=== PATIENT | female | born 1940 | race Caucasian/White ===

== ENCOUNTER → 2016-08-01 | Outpatient (CLI) | payer OTHER ==
[~2016-08-01] MED LIST: ACET1TAB84 PO; ASPEC325 PO; CALC-354 PO; CYM/30 PO; DOCU-94 PO; ESTR0.3T PO; FLUT0.0529 NAE; GABA-112 PO; GABA-113 PO; HYDR-5688 PO; KLN5 PO; LOVA40TA4 PO; LRT5 PO; MELO7.5T5 PO; METO25TA3 PO; MULT-506 PO; OMEG12006 PO; OXYSR10 PO; PANT40TA PO; PARO1TAB27 PO; PLANTAB3 PO; RXC5 PO; SYN75 PO; TRMO115 TOP; VITATAB11 PO; [UNRECOGNIZED DRUG - OTHER] PO
--- NOTE | 2016-08-01 16:44 | DIAGNOSTIC IMAGING REPORT ---
MRI OF THE LUMBAR SPINE WITHOUT CONTRAST CLINICAL HISTORY: Lumbar radiculopathy. Low back pain radiating into both lower extremities with lower extremity numbness. COMPARISON STUDY: Lumbar spine radiographs December 27, 2006. TECHNIQUE: Utilizing a 1.5 Deborah magnet and dedicated coil, multiplanar, multiecho imaging of the lumbar spine was performed without IV contrast. FINDINGS: For purposes of numbering on this exam, the L5-S1 disc space is assigned to axial image 23 of 25. Vertebral body heights are maintained. There is slight retrolisthesis of L2 on L3. Discogenic changes at the L2-L3 level are noted. There is no intracanalicular mass or fluid collection. The conus terminates at the lower L1 level. 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 Paravertebral soft tissues are unremarkable. There is mild levoscoliosis of the lumbar spine. L1-2: There is mild disc bulge. The central canal and neural foramen are patent. L2-3: There is a disc bulge with ligamentous hypertrophy and facet arthrosis. There is a central annular tear. There is a superimposed right paracentral disc protrusion. There is moderate narrowing of the central canal and lateral recesses as well as mild narrowing of both neural foramen. L3-4: There is disc bulge with ligamentous hypertrophy and facet arthrosis. There is mild narrowing of the central canal, lateral recesses and the neural foramen. L4-5: There is disc bulge with ligamentous hypertrophy and facet arthrosis. The central canal and neural foramen are patent. L5-S1: The central canal is patent. There is moderate narrowing of left neural foramen and mild to moderate narrowing of the right neural foramen. IMPRESSION: 1. Moderate multilevel degenerative disc disease and facet arthrosis most pronounced at L2-L3 where a disc bulge with superimposed right paracentral disc protrusion, ligamentous hypertrophy and facet arthrosis result in moderate narrowing of the central canal and lateral recesses. 2. Moderate multilevel neural foraminal stenosis, as detailed above. 3. No compression fracture. Electronically signed by: Andres Loco M.D. 08/01/2016 4:42 PM Dictated Date/Time: 08/01/2016 4:36 PM
== END | disposition home or self-care (01) ==
LOC: C.MRIBC 15:25
PROVIDERS: ATTEND Pain Medicine Interventional Pain Medicine
DX: M51.16 Intervertebral disc disorders with radiculopathy, lumbar region (principal); M99.73 Connective tissue and disc stenosis of intervertebral foramina of lumbar region

== ENCOUNTER 2016-09-25 05:30 | Inpatient (IN) | payer OTHER ==
--- NOTE | 2016-09-12 11:12 | DIAGNOSTIC IMAGING REPORT ---
CHEST 2 VIEWS ROUTINE HISTORY: PRE OP, PT WENT TO [facility], [facility] AFTER PLEASE COMPARISON: Chest 10/11/2013. FINDINGS: No new focal lung consolidations. The heart is normal in size. Old, healed bilateral rib fractures. No pleural effusions. No pneumothorax. Stable eventration of the right hemidiaphragm. A few small linear densities within the right middle lobe consistent with subsegmental atelectasis or scarring. This is also unchanged. IMPRESSION: No significant change compared to the prior study. No acute process. Electronically signed by: Cl Garcia M.D. 09/12/2016 11:10 AM Dictated Date/Time: 09/12/2016 11:09 AM
[2016-09-12 12:01] LABS: BASO % 0.5 %; BASO ABS # 0.03 K/uL (0-0.2); COMPLETE YES; EOS % 1.7 %; HEMATOCRIT 43.1 % (37-47); IG% 0.6 %; LYMPH % 32.7 %; LYMPH ABS # 2.09 K/uL (1.2-3.4); MEAN CELL VOLUME 96.4 fL (80-100); MEAN CORPUSCULAR HEMOGLOBIN 31.8 pg (25-34); MEAN CORPUSCULAR HGB CONC 32.9 g/dl (32-36); MEAN PLATELET VOLUME 10.7 fL (7.4-10.4); MONO % 10.3 %; NEUT % 54.2 %; PLATELET COUNT 250 K/uL (130-400); RED BLOOD COUNT 4.47 M/uL (4.2-5.4)
[2016-09-12 12:17] LABS: URINE APPEARANCE CLEAR (CLEAR); URINE BILIRUBIN NEG (NEG); URINE COLOR DK YELLOW; URINE EPITHELIAL CELL AUTO >30 /lpf (0-5); URINE NITRITE NEG (NEG); URINE PH 6.5 (4.5-7.5); URINE SPECIFIC GRAVITY 1.023 (1.000-1.030); UROBILINOGEN NEG (NEG)
[2016-09-12 12:19] LABS: CALCIUM 9.2 mg/dl (8.5-10.1)
[2016-09-12 12:21] LABS: BLOOD UREA NITROGEN 18 mg/dl (7-18); CARBON DIOXIDE 29 mmol/L (21-32); CHLORIDE 109 mmol/L (98-107); CREATININE 0.92 mg/dl (0.60-1.20); GLUCOSE 68 mg/dl (70-99); SODIUM 144 mmol/L (136-145)
[2016-09-12 12:42] LABS: MANUAL MICROSCOPIC REQUIRED? NO; REVIEW REQ? NO
[2016-09-12 14:13] VITALS: BMI 33.0
[~2016-09-25] VITALS: Ht 157.5 cm; Wt 85.0 kg
[2016-09-25] VITALS (10 sets, daily range): BP systolic 115–169; BP diastolic 49–82; PULSE 16–84; TEMP 36.4–36.9; O2SAT 91–100; Ht 157.5 cm; Wt 85.0 kg
[~2016-09-25 05:30] MED LIST changes: -ACET1TAB84 PO; -ASPEC325 PO; -ESTR0.3T PO; -GABA-113 PO; -KLN5 PO; -LRT5 PO; -MELO7.5T5 PO; -OXYSR10 PO; -PARO1TAB27 PO; -PLANTAB3 PO; -RXC5 PO; -TRMO115 TOP
[2016-09-25] MEDS ORDERED: LACTATED RINGER'S 1000ML 1,000 ML IV SCH (06:00)
[2016-09-25] MEDS ORDERED: CEFAZOLIN 2000 MG/60 ML D5W IV SCH (06:00)
[2016-09-25] MEDS ORDERED: MIDAZOLAM HCL 1 MG/ML 2ML VIAL ONE (06:43)
[2016-09-25] MEDS ORDERED: FENTANYL CITRATE INJ 50 MCG/1 ML 2 ML VIAL ONE ×2 (06:43→07:57)
[2016-09-25] MEDS ORDERED: BUPIVACAINE/EPINEPHRINE 0.5% MPF 1:200,000 30 ML VIAL ONE (07:07)
[2016-09-25] MEDS ORDERED: SODIUM CHLORIDE 0.9% PF 50 ML VIAL ONE (07:07)
[2016-09-25] MEDS ORDERED: BACITRACIN 50000 UNIT VIAL ONE (07:07)
--- NOTE | 2016-09-25 07:22 | History & Physical Bridge Note ---
H&P Re-Evaluation Bridge Note: I have examined the patient, reviewed the History & Physical and in the interval since the performance of the History & Physical I have noted the following changes of clinical significance: No changes noted
--- NOTE | 2016-09-25 07:23 | History and Physical ---
History & Physical Date September 25, 2016. Chief Complaint back and leg pain History of Present Illness The patient is a 76 year old female with complaints of Additional History Hepatic Disease: No Endocrine Disorder: No Kidney Disease: No Hypertension: No Heart Disease: No Bleeding Tendencies: No Infectious Diseases: No Allergies Coded Allergies: NO KNOWN DRUG ALLERGIES (Unverified Allergy, Unknown, NONE, 09/25/16) Adhesives (Unverified Adverse Reaction, Severe, plastic tapes takes her skin off, 09/25/16) Chlorhexidine (Unverified Adverse Reaction, Intermediate, rash on rt le from pre-op wipes last pm and this am, 09/25/16) Home Medications Scheduled Calcium Carbonate-Cholecalcife (Caltrate 600+D), 1 TAB PO QAM Docusate Sodium (Colace), 100 MG PO BID Duloxetine HCl (Cymbalta), 1 CAP PO QPM Gabapentin (Neurontin), 100 MG PO BID Levothyroxine (Synthroid *), 0.075 MG PO QAM Lovastatin (Mevacor), 40 MG PO HS Metoprolol Succ (Toprol Xl) (Toprol-Xl), 25 MG PO QAM Multivitamin (Multivitamin), 1 TAB PO QAM Herron-3 Fatty Acids (Herron 3), 1,000 MG PO DAILY Pantoprazole (Protonix), 40 MG PO QAM [Natural Made], 2 TAB PO QPM Scheduled PRN Fluticasone Propionate (Nasal) (Flonase), 2 SPRAYS ANDRES DAILY PRN for PRN Hydrocodone/Acetaminophen 5MG/325MG ([place] 5MG/325MG), 1 TABLET PO Q4-6H PRN for Pain Physical Examination Skin: warm/dry, no rash Eyes: normal inspection, EOMI, sclerae normal ENT: normal ENT inspection, pharynx normal Head: normocephalic, atraumatic Neck: supple, no adenopathy, trachea midline Respiratory/Chest: lungs clear, normal breath sounds, no respiratory distress Cardiovascular: regular rate, rhythm, no edema, no murmur Abdomen / GI: normal bowel sounds, non tender Back: normal inspection Extremities: normal inspection, normal range of motion Neurologic/Psych: no motor/sensory deficits, alert, normal reflexes, oriented x 3 Diagnosis lumbar stenosis Plan of Treatment decompression fusion L2-3 L3-4
[2016-09-25] MEDS ORDERED: HYDROmorphone INJ 2 MG/ML SYR/VIAL ONE (07:57)
[2016-09-25] MEDS ORDERED: ONDANSETRON INJ 2 MG/ML 2 ML VIAL IV PRN ×2 (08:00→09:30)
[2016-09-25] MEDS ORDERED: EpHEDrine SULFATE INJ 50 MG/ML AMP IV PRN (08:00)
[2016-09-25] MEDS ORDERED: ATROPINE SULFATE 0.1 MG/ML 5ML SYR IV PRN (08:00)
[2016-09-25] MEDS ORDERED: ROCURONIUM BROMIDE 10 MG/ML 5 ML VIAL ONE (08:26)
[2016-09-25] MEDS ORDERED: DEXAMETHASONE SOD INJ 4 MG/ML VIAL ONE (08:26)
[2016-09-25] MEDS ORDERED: GLYCOPYRROLATE INJ 0.2 MG/ML VIAL ONE (08:26)
[2016-09-25] MEDS ORDERED: NEOSTIGMINE METHYLSULFATE 1 MG/ML 10ML VIAL ONE (08:26)
[2016-09-25] MEDS ORDERED: LIDOCAINE HCL 2% 2 ML VIAL (20MG/ML) ONE (08:26)
[2016-09-25] MEDS ORDERED: EpHEDrine SULFATE 50MG/5ML SYR ONE (08:26)
[2016-09-25] MEDS ORDERED: PROPOFOL IV EMULSION 10 MG/ML 20 ML VIAL IV ONE (08:26)
[2016-09-25] MEDS ORDERED: ONDANSETRON INJ 2 MG/ML 2 ML VIAL ONE (08:26)
[2016-09-25] MEDS ORDERED: FLOSEAL HEMOSTATIC MATRIX 10ML TOP ONE (09:27)
[2016-09-25] MEDS ORDERED: SODIUM CHLORIDE 0.9% 1000ML 1,000 ML IV SCH (09:29)
--- NOTE | 2016-09-25 09:29 | [facility] Post Operative Brief Note ---
Immediate Operative Summary Operative Date September 25, 2016. Pre-Operative Diagnosis Lumbar Spinal Stenosis Post-Operative Diagnosis Lumbar Spinal Stenosis Procedure(s) Performed L2-L3, L3-L4 Lumbar Laminectomy, Decompression, Pedicle Screw Fixation, Placement of Interbody Device L2-L3, L3-L4, Posterolateral Fusion L2-L3, L3-L4, Application of Allograft, Bone Morphogenetic Protein Surgeon Dr. Ricardo Neuropsychiatrist Surgeon(s) KIRSTEN Russell Estimated Blood Loss 250 Findings stenosis/hnp Specimens none per surgeon
[2016-09-25] MEDS ORDERED: FAMOTIDINE 20 MG TAB PO PRN (09:30)
[2016-09-25] MEDS ORDERED: DO NOT ADMINISTER PNEUMOCOCCAL VACCINE PRN ×2 (09:30)
[2016-09-25] MEDS ORDERED: SOD PHOSPHATE/SOD BIPHOSPHATE ENEMA 132 ML BTL PR PRN (09:30)
[2016-09-25] MEDS ORDERED: MAGNESIUM HYDROXIDE SUSP 30 ML UDC PO PRN (09:30)
[2016-09-25] MEDS ORDERED: LORAZEPAM 0.5 MG TAB PO PRN (09:30)
[2016-09-25] MEDS ORDERED: LORAZEPAM INJ 0.5 MG in SYRINGE 0.75 ML IV PRN (09:30)
[2016-09-25] MEDS ORDERED: METOCLOPRAMIDE HCL INJ 5 MG/ML 2 ML VIAL IV PRN (09:30)
[2016-09-25] MEDS ORDERED: HYDROmorphone HCL 0.5MG/ML 50 ML CASSETTE IV PRN (09:30)
[2016-09-25] MEDS ORDERED: DO NOT ADMINISTER FLU VACCINE PRN ×3 (09:30)
[2016-09-25] MEDS ORDERED: ACETAMINOPHEN IV 100 ML IV PRN (09:30)
[2016-09-25] MEDS ORDERED: NALOXONE HCL 0.4 MG/1 ML VIAL/CARP IV PRN ×2 (09:30)
[2016-09-25] MEDS ORDERED: DC PCA PRN (09:30)
[2016-09-25] MEDS ORDERED: ALUMINUM/MAGNESIUM SUSP 30 ML UDC PO PRN (09:30)
[2016-09-25] MEDS ORDERED: hydrOXYzine HCL 25 MG TAB PO PRN (09:30)
[2016-09-25] MEDS ORDERED: BISACODYL 10 MG SUPP PR PRN (09:30)
[2016-09-25] MEDS ORDERED: PROMETHAZINE HCL INJ 12.5 MG in SODIUM CHLORIDE 0.9% 50ML 50 ML IV PRN (09:30)
--- NOTE | 2016-09-25 09:34 | DIAGNOSTIC IMAGING REPORT ---
Lumbar spine LUMBAR SPINE 2 OR 3 VIEW CLINICAL HISTORY: L2-4 DECOMPRESSION/FUSION/INTERBODY/ILIAC BOLTS TECHNIQUE: Image intensifier COMPARISON STUDY: None FINDINGS: Lumbar laminectomy and fusion IMPRESSION: Image intensifier utilized for lumbar laminectomy and fusion Electronically signed by: Alex Villalobos M.D. 09/25/2016 9:33 AM Dictated Date/Time: 09/25/2016 9:33 AM
[2016-09-25] MEDS ORDERED: HYDROmorphone HCL 0.5MG/ML 50 ML CASSETTE ONE (09:50)
--- NOTE | 2016-09-25 09:50 | OPERATIVE REPORT ---
DATE OF OPERATION: 09/25/2016 PREOPERATIVE DIAGNOSES: Spinal stenosis and herniated nucleus pulposus. POSTOPERATIVE DIAGNOSES: Same. PROCEDURES PERFORMED: 1. Lumbar decompression, medial facetectomies, and foraminotomies, L1-L2, L2-L3 and L3-L4. 2. Posterior spinal fusion, L2-L3 and L3-L4. 3. Placement of posterior segmental instrumentation using Orthros rods and screws, L2-L3 and L3-L4. 4. Interbody fusion, L2-L3 and L3-L4. 5. Placement of PEEK cage 9 x 22 at L2-L3 and 10 x 22 at L3-L4. 6. Placement of locally harvested morselized autograft in the posterior gutters. 7. Placement of Infuse collagen sponge combined with Mastergraft in the posterior lateral gutters and No bone graft in the interbody space. SURGEON: Dr. Inocente Ricardo. LIVESTOCK SHOWMAN: Celi Chapman PA-C. Due to the complex nature of the procedure, the entire surgery was performed with the freezer assistant of Celi Chapman PA-C. The commercial lending assistant, under direct supervision, was involved in the actual performance of all aspects of the surgical procedure including hemostasis, tissue retraction and incision, instrument management, patient positioning, and wound closure. ANESTHESIA: General. DISPOSITION: The patient awakened and taken to PACU in stable condition. HISTORY OF PATIENT'S PROBLEMS: This is a 76-year-old female, well known to me that presents with above-mentioned diagnoses. After failing an extensive course of nonoperative care, she elected to undergo the above-mentioned procedures. Risks, benefits, pros, cons, and alternatives were outlined in detail preoperatively. DESCRIPTION OF PROCEDURE: The patient was met with preoperatively, case discussed and all questions were addressed. At that point, the patient was taken back to operative suite and after undergoing successful general intubation by the department of anesthesia, she was placed in prone position on Fernando table atop Jah frame. All bony prominences were well padded and the eyes were inspected to ensure there was no external pressure placed upon them. At this point, lumbar spine was prepped and draped in the normal sterile fashion. Sharp dissection with the assistance of Bovie cautery was performed down to and exposing the lamina and processes of L2, L3 and L4 bilaterally. From a caudal to cephalad fashion, complete laminectomy of L3 and L2 and partial laminectomy of L1 was performed addressing severe lateral recess foraminal disease as well as a massive disk herniation migrating caudally from the L2-L3 level. After complete decompression, pedicle screws were then placed in L2, L3, and L4 bilaterally with assistance of fluoroscopy and appropriate size drew provisionally placed. Through a transforaminal approach on the right, a complete diskectomy of L3-L4 was performed, endplates curetted to subcortical bleeding bone and a 10 x 22 mm PEEK cage filled with No bone grafting tapped into position. I then proceeded to L2 and L3 and again through a transforaminal approach on the right, complete diskectomy was performed, endplates curetted to subcortical bleeding bone and a 9 x 22 mm PEEK cage filled with No bone grafting tapped into position. The rods were then compressed, locked into final position bilaterally and transverse processes of L2, L3, and L4 burred to subcortical bleeding bone. Infuse collagen sponge combined with Mastergraft and locally harvested morcellized autograft was placed in the posterior gutters. A 7 flat SWAPNIL drain was inserted. Incision was closed with 1-0 Vicryl in the fascia, 2-0 Vicryl subcutaneously, and 4-0 Monocryl for final skin closure. Steri-Strips and sterile dressing placed. The patient was awakened and taken to PACU in stable condition. I attest to the content of the Intraoperative Record and any orders documented therein. Any exceptio ns are noted below.
[2016-09-25] MEDS: FENTANYL CITRATE INJ 50 MCG/1 ML 2 ML VIAL IV PRN ×4 (10:00→10:15)
[2016-09-25] MEDS: HYDROmorphone INJ 1 MG/ML SYR IV PRN ×3 (10:25→10:40)
[2016-09-25] MEDS: SODIUM CHLORIDE 0.9% 1000ML 1,000 ML IV SCH ×2 (12:23→18:48)
--- NOTE | 2016-09-25 13:47 | Anesthesiology Progress Note ---
Anesthesia Post Op Note Date & Time September 25, 2016 at 13:46 Vital Signs Pain Intensity: 4 Vital Signs Past 12 Hours Date Time Temp Pulse Resp B/P Pulse Ox O2 Delivery O2 Flow Rate FiO2 09/25/16 12:26 36.5 61 16 144/73 91 Nasal Cannula 4.0 09/25/16 11:30 36.4 68 18 128/64 91 Nasal Cannula 4.0 09/25/16 11:01 153/60 09/25/16 11:00 69 14 97 09/25/16 11:00 69 14 09/25/16 10:58 152/62 09/25/16 10:55 66 9 96 09/25/16 10:55 69 9 09/25/16 10:53 150/68 09/25/16 10:50 66 9 94 09/25/16 10:50 66 9 09/25/16 10:45 75 14 92 09/25/16 10:45 73 14 09/25/16 10:44 57 16 96 09/25/16 10:44 57 14 09/25/16 10:43 144/ 09/25/16 10:39 70 14 09/25/16 10:39 71 14 97 09/25/16 10:36 148/64 09/25/16 10:34 64 14 97 09/25/16 10:34 65 12 09/25/16 10:31 146/65 09/25/16 10:29 73 15 09/25/16 10:29 72 15 100 09/25/16 10:27 36.3 76 19 152/63 99 Nasal Cannula 4 09/25/16 10:26 152/63 09/25/16 10:25 147/61 09/25/16 10:24 70 14 09/25/16 10:24 70 14 98 09/25/16 10:23 149/ 09/25/16 10:19 70 15 97 09/25/16 10:19 71 15 09/25/16 10:16 150/68 09/25/16 10:14 72 15 156/66 97 09/25/16 10:14 72 15 09/25/16 10:09 73 21 98 09/25/16 10:09 73 21 09/25/16 10:06 155/67 09/25/16 10:04 75 17 09/25/16 10:04 76 17 99 09/25/16 10:03 78 21 09/25/16 10:03 78 21 99 09/25/16 10:01 160/71 09/25/16 09:58 79 20 09/25/16 09:58 79 20 97 09/25/16 09:56 158/71 09/25/16 09:53 80 22 09/25/16 09:53 80 22 100 09/25/16 09:51 164/75 09/25/16 09:49 176/76 09/25/16 09:48 71 16 09/25/16 09:48 71 16 100 09/25/16 09:48 36.2 71 16 176/76 100 Mask 10 09/25/16 06:16 36.8 84 24 169/82 100 Room Air Notes Mental Status: alert / awake / arousable, participated in evaluation Pt Amnestic to Procedure: Yes Nausea / Vomiting: adequately controlled Pain: adequately controlled Airway Patency, RR, SpO2: stable & adequate BP & HR: stable & adequate Hydration State: stable & adequate Anesthetic Complications: no major complications apparent
[2016-09-25] MEDS: CEFAZOLIN IV 2,000 MG in DEXTROSE 5% 50ML 50 ML IV SCH (16:13)
[2016-09-25] MEDS: DEXAMETHASONE INJ 6 MG in SYRINGE 0 ML IV SCH (16:13)
[2016-09-25] MEDS: DOCUSATE SODIUM/SENNA 50/8.6MG TAB PO SCH (20:59)
[2016-09-26] MEDS: CEFAZOLIN IV 2,000 MG in DEXTROSE 5% 50ML 50 ML IV SCH (00:08)
[2016-09-26] MEDS: DEXAMETHASONE INJ 6 MG in SYRINGE 0 ML IV SCH ×2 (00:09→07:56)
[2016-09-26] MEDS: SODIUM CHLORIDE 0.9% 1000ML 1,000 ML IV SCH (01:43)
[2016-09-26 03:40] VITALS: BP 148/70; PULSE 66; TEMP 36.6; O2SAT 96
[2016-09-26] MEDS ORDERED: HYDROmorphone INJ 1 MG/ML SYR IV PRN (06:00)
[2016-09-26] MEDS ORDERED: NURSING VERBAL MED ORDER ONE ×4 (06:15→19:00)
[2016-09-26 07:02] VITALS: BP 139/68; PULSE 68; TEMP 36.7; O2SAT 94
[2016-09-26 07:45] VITALS: O2SAT 94
[2016-09-26] MEDS: OXYCODONE HCL IR 5 MG TAB (IMMEDIATE RELEASE) PO PRN ×4 (07:56→22:22)
[2016-09-26 08:44] LABS: COMPLETE YES; IG% 0.2 %; LYMPH % 9.8 %; LYMPH ABS # 1.21 K/uL (1.2-3.4); MEAN CELL VOLUME 95.9 fL (80-100); MEAN CORPUSCULAR HEMOGLOBIN 31.5 pg (25-34); MEAN CORPUSCULAR HGB CONC 32.9 g/dl (32-36); MEAN PLATELET VOLUME 10.5 fL (7.4-10.4); PLATELET COUNT 213 K/uL (130-400); RED BLOOD COUNT 3.65 M/uL (4.2-5.4); WHITE BLOOD COUNT 12.37 K/uL (4.8-10.8)
[2016-09-26 09:10] LABS: BUN/CREATININE RATIO 18.5 (10-20); CREATININE 0.87 mg/dl (0.60-1.20); POTASSIUM 4.4 mmol/L (3.5-5.1)
[2016-09-26 09:14] LABS: CALCIUM 8.5 mg/dl (8.5-10.1)
[2016-09-26 11:08] VITALS: BP 157/73; PULSE 69; TEMP 36.2; O2SAT 95
[2016-09-26] MEDS ORDERED: RXC5 PO (15:16)
--- NOTE | 2016-09-26 15:16 | Discharge Instructions ---
Discharge Instructions Date of Service September 26, 2016. Admission Reason for Admission: Lumbar Spinal Stenosis Discharge Discharge Diagnosis / Problem: stenosis Discharge Goals Goal(s): Improve function Activity Recommendations Activity Limitations: per Instructions/Follow-up section . Instructions / Follow-Up Instructions / Follow-Up ACTIVITY RECOMMENDATIONS: SELF CARE INSTRUCTIONS AFTER THORACIC/LUMBAR FUSIONS 1. You may walk to your tolerance. It is good exercise for your legs and back. Expect some back and intermittent leg aches and pains. 2. You may perform "counter-top" level activities (make a sandwich, dejon with a project, etc.). 3. No bending or lifting of more than 10 pounds or back twisting of any nature (roll like a log when turning in bed). 4. You may ride in a car for 20-30 minutes at a time. No driving until after your first visit with your doctor. 5. Frequent changes of position and restricting sitting to 30 minutes at a time will help limit the amount of back spasms and stiffness you may experience. 6. You may discontinue the use of ambulatory aids (cane, crutches, etc.) once your strength and confidence allow. 7. You may complaint operator the shower and let water strike your incision when you arrive home at least once daily. Do not take a tub bath, sit in a hot tub or go into a swimming pool until after your first recheck in the office. SPECIAL CARE INSTRUCTIONS: VERY IMPORTANT TO READ AND REVIEW A. Your surgical incision has been closed with a cosmetic suture under the skin that will dissolve in about 6 weeks. In 14 days, you can use a pair of clean scissors and cut the suture that is left outside of the skin at the ends of your incision. 1. The small skin tapes can be removed 7 days after surgery if they have not fallen off by that point. 2. You may keep the wound open to air as much as possible to promote healing after post-op day number 5 unless told otherwise by your doctor. 3. If you think the wound looks like it is becoming infected (redness or worsening drainage) and/or you are experiencing fever, chill or worsening back pain and muscle spasms, contact the office so that we may evaluate you as soon as possible. B. Complications are uncommon, but please contact us if you have any signs or symptoms of: 1. wound infection (fever higher than 102.5 degrees F, redness, separation of wound, drainage, or increasing pain from the incision) 2. blood clots in legs (pain, swelling, redness and warmth in legs) 3. urinary tract infection (fever higher than 102.5 degrees F, burning upon urination or increased frequency of urination) 4. nerve problems (inability to walk on your toes or heels, numbness, loss of bowel or bladder control) 5. any other symptoms that concern you C. Please call the office at if you have any concerns or questions about your operation or recovery. D. No smoking! Smoking drastically decreases the chance of a solid fusion. E. Do not take any anti-inflammatory medications (Indocin, Advil, Motrin, Aspirin, Naprosyn, etc.) as these may inhibit the chance of a solid fusion. Tylenol is okay to take for pain. MANAGING PAIN AFTER SPINAL SURGERY 1. Narcotic medication is intended for short-term use and will be provided for surgical pain. Surgical pain usually lasts for a period of 4-6 weeks. Narcotic medication includes Percocet, Vicodin, Darvocet, Tylenol #3 or Lortab. 2. Longer-term pain is more appropriately treated with non-narcotic medication such as Tylenol ES. 3. Muscle spasm is not appropriately treated with narcotics. Muscle relaxers such as Soma, Flexeril or Skelaxin can be used along with Tylenol ES. 4. Remember that we all live with some "aches and pains". This is not unusual or uncommon after an injury or as we get older. a. Back pain is expected and may include muscle spasms for 4 to 6 weeks after surgery. The pain should gradually improve. If the pain worsens for no apparent reason, please contact the office. b. Intermittent leg pain may also be experienced and should not be concerned about unless it worsens for no apparent reason. If so, please contact the office. 5. We will provide appropriate medication within the normal guidelines of their prescribed use. We will also be very cautious and aware of potential abuse and extended duration of patients' medication needs. a. Pain medications are for your comfort and to assist with sleep and rest so that the tissue can heal. They are not provided in order to return to normal activity and should not be used through the day. To do so or worsening pain at night can result from ongoing tissue damage and development of tolerance to the prescribed medicine. 6. Please allow 2-3 days to process refills. Prescriptions will not be mailed but must be picked up at the office. FOLLOW UP VISIT: Keep your scheduled follow-up appointment. Any questions, please call the office at . Current Hospital Diet Patient's current hospital diet: Regular Diet Discharge Diet Recommended Diet: Regular Diet Procedures Procedures Performed: L2-L3, L3-L4 Lumbar Laminectomy, Decompression, Pedicle Screw Fixation, Placement of Interbody Device L2-L3, L3-L4, Posterolateral Fusion L2-L3, L3-L4, Application of Allograft, Bone Morphogenetic Protein Pending Studies Studies pending at discharge: no Medical Emergencies . Who to Call and When: Medical Emergencies: If at any time you feel your situation is an emergency, please call 911 immediately. . Non-Emergent Contact Non-Emergency issues call your: Primary Care Provider . "Provider Documentation" section prepared by Inocente Ricardo. . VTE Core Measure Inpt VTE Proph given/why not?: Sara Short, SCD's
[2016-09-26 15:40] VITALS: BP 160/73; PULSE 74; TEMP 36.7; O2SAT 96
--- NOTE | 2016-09-26 16:00 | PROGRESS NOTE ---
DATE: 09/26/2016 HISTORY OF PRESENT ILLNESS: Postop day 1. Back pain controlled. Leg pain improved. Vital signs stable. T-max 36.7. SWAPNIL drained 115 mL. Hematocrit this a.m. is 35.0. PHYSICAL EXAMINATION: She is in chair, has strength to testing. Appears comfortable. ASSESSMENT: Status post lumbar decompression and fusion. PLAN: At this time, we will continue physical therapy, advance her bowel regimen and discharge home this weekend.
[2016-09-26] MEDS ORDERED: PANTOprazole SOD 40 MG TAB PO ONE (18:30)
[2016-09-26] MEDS: DULOXETINE (CYMBALTA) 30 MG CAP PO SCH (19:47)
[2016-09-26] MEDS: GABAPENTIN 100 MG CAP PO SCH (21:19)
[2016-09-26] MEDS: DOCUSATE SODIUM/SENNA 50/8.6MG TAB PO SCH (21:20)
[2016-09-26] MEDS: LOVASTATIN 20 MG TAB PO SCH (22:22)
[2016-09-26 23:28] VITALS: BP 155/72; PULSE 67; TEMP 36.9; O2SAT 93
[2016-09-27] MEDS: OXYCODONE HCL IR 5 MG TAB (IMMEDIATE RELEASE) PO PRN ×5 (04:28→22:18)
[2016-09-27] MEDS: POLYETHYLENE (MIRALAX) 17 GM PACK PO SCH ×4 (05:43→23:56)
[2016-09-27] MEDS: LEVOTHYROXINE 75 MCG TAB PO SCH (05:44)
[2016-09-27 06:12] VITALS: BP 152/74; PULSE 71; TEMP 36.5; O2SAT 94
[2016-09-27] MEDS: PANTOprazole SOD 40 MG TAB PO SCH (07:55)
[2016-09-27] MEDS: METOPROLOL SUCC 25MG EXT REL TAB PO SCH (07:55)
[2016-09-27] MEDS: GABAPENTIN 100 MG CAP PO SCH ×2 (07:55→21:26)
[2016-09-27] MEDS: ACETAMINOPHEN 500 MG TAB PO PRN ×2 (07:56→23:56)
[2016-09-27 08:48] VITALS: BP 169/71; PULSE 85; O2SAT 95
--- NOTE | 2016-09-27 15:15 | PROGRESS NOTE ---
DATE: 09/27/2016 DATE: 09/27/2016. SUBJECTIVE: Postop day 2. Back pain is controlled. Leg pain improved. Vital signs stable. T-max 36.5. SWAPNIL drained 75 mL today. Hematocrit stable at 35.0. OBJECTIVE: On exam she has good strength to testing, appears comfortable. ASSESSMENT: Status post lumbar decompression and fusion. PLAN: At this time, will continue with therapy, watch her SWAPNIL drain, possibly home tomorrow with home health.
[2016-09-27 15:26] VITALS: BP 118/61; PULSE 62; TEMP 36.7; O2SAT 93
[2016-09-27] MEDS: DULOXETINE (CYMBALTA) 30 MG CAP PO SCH (18:05)
[2016-09-27] MEDS: DOCUSATE SODIUM/SENNA 50/8.6MG TAB PO SCH (21:26)
[2016-09-27] MEDS: LOVASTATIN 20 MG TAB PO SCH (22:17)
[2016-09-27 23:38] VITALS: BP 152/66; PULSE 78; TEMP 37.4; O2SAT 95
[2016-09-28] MEDS: POLYETHYLENE (MIRALAX) 17 GM PACK PO SCH (05:25)
[2016-09-28] MEDS: LEVOTHYROXINE 75 MCG TAB PO SCH (05:25)
[2016-09-28 06:22] VITALS: BP 155/77; PULSE 64; TEMP 36.8; O2SAT 93
[2016-09-28] MEDS: GABAPENTIN 100 MG CAP PO SCH (07:25)
[2016-09-28] MEDS: PANTOprazole SOD 40 MG TAB PO SCH (07:25)
[2016-09-28] MEDS: METOPROLOL SUCC 25MG EXT REL TAB PO SCH (07:25)
[2016-09-28] MEDS: OXYCODONE HCL IR 5 MG TAB (IMMEDIATE RELEASE) PO PRN (07:25)
[2016-09-28 09:30] VITALS: BP 168/88; PULSE 68; O2SAT 95
--- NOTE | 2016-09-28 11:00 | DISCHARGE SUMMARY ---
DATE OF DISCHARGE: 09/28/2016. PRINCIPAL DIAGNOSIS: Spinal stenosis. HOSPITAL COURSE FOLLOWS: On 09/25/2016 patient underwent lumbar decompression and fusion, tolerated this well and taken to the orthopedic floor postoperatively. Postop day #1, she was up and ambulatory, progressed to postop day #2. Postop day #3, SWAPNIL drain decreased appropriately. Pain well controlled. Subsequently discharged home. Discharge orders and instructions can be found on the chart for further review.
[2016-09-28 11:10] VITALS: BP 168/88; PULSE 68; TEMP 36.8; O2SAT 95
[2017-01-21] MEDS ORDERED: ACET1TAB84 PO (09:23)
[2017-02-17] MEDS ORDERED: LEVO75TA5 PO (07:41)
[2017-02-19] MEDS ORDERED: NEPA0.6D OPL (09:06)
[2017-02-19] MEDS ORDERED: OFLO0.3D4 OPL (09:06)
== END 2016-09-28 12:35 | disposition home health service (06) | DRG 460 ==
LOC: ENRESERVTM → ENRESERVDT → C.ACU 05:30 → C.MSN 07:20
PROVIDERS: ADMIT Orthopaedic Surgery Orthopaedic Surgery of the Spine; ATTEND Orthopaedic Surgery Orthopaedic Surgery of the Spine
PROC: 0SG1071 Fusion of 2 or more Lumbar Vertebral Joints with Autologous Tissue Substitute, Posterior Approach, Posterior Column, Open Approach (ICD-10-PCS; principal; 2016-09-25 07:45)
PROC: 0SG10AJ Fusion of 2 or more Lumbar Vertebral Joints with Interbody Fusion Device, Posterior Approach, Anterior Column, Open Approach (ICD-10-PCS; principal; 2016-09-25 07:45)
PROC: 0ST20ZZ Resection of Lumbar Vertebral Disc, Open Approach (ICD-10-PCS; principal; 2016-09-25 07:45)
DX: M51.26 Other intervertebral disc displacement, lumbar region (principal); M48.06 Spinal stenosis, lumbar region; Z79.899 Other long term (current) drug therapy

== ENCOUNTER → 2017-02-05 | Day surgery (SDC) | payer OTHER ==
[2017-01-21 09:25] VITALS: Ht 158.8 cm; Wt 85.0 kg
[~2017-02-05] VITALS: Ht 158.8 cm; Wt 85.0 kg
[~2017-02-05] MED LIST changes: +500ML BSS 0.3ML EPI 1:1000PF IRRIG ONE; +ACET1TAB84 PO; +ACETAMINOPHEN 325 MG TAB PO PRN; +AMVISC PLUS 0.8ML SYRINGE INT OCU ONE; +ATROPINE SULFATE 0.1 MG/ML 5ML SYR IV PRN; +BSS FLUSH ONE; -CYM/30 PO; +ENDOCOAT 0.85ML SYRINGE INT OCU ONE; +EpHEDrine SULFATE INJ 50 MG/ML AMP IV PRN; +EpINEphrine INJ 1MG/ML AMP 1 MG/ML AMP ONE; +FENTANYL CITRATE INJ 50 MCG/1 ML 2 ML VIAL IV PRN; +FLUMAZENIL 0.1 MG/1 ML 10 ML VIAL IV PRN; -FLUT0.0529 NAE; +HYDROmorphone INJ 2 MG/ML SYR/VIAL IV PRN; +LABETALOL HCL IV 5 MG/ML 20ML IV PRN; +LACTATED RINGER'S 1000ML 500 ML IV SCH; +LIDOCAINE 4% OP SOLN DROP CHARGE ONE; +LIDOCAINE 4% OP SOLN DROP CHARGE OPR SCH; +LIDOCAINE HCL 1% MPF 2 ML VIAL ONE; +MEPERIDINE HCL 25 MG/ML CARP IV PRN; +MIDAZOLAM HCL 1 MG/ML 2ML VIAL ONE; +MIX: 4ML BSS 1ML EPI 1:1000 PF TOP ONE; +MOXIFLOXACIN OPH SOLN PER DROP CHARGE ONE; +NALOXONE HCL 0.4 MG/1 ML VIAL/CARP IV PRN; +ONDANSETRON INJ 2 MG/ML 2 ML VIAL IV PRN; +PHENYLEPHRINE 100MCG/ML 5ML SYR IV PRN; +POVIDONE-IODINE OP SOLN 30 ML BTL ONE; +PROPARACAINE 0.5% OP SOLN PER DROP CHARGE OPR SCH; +TOBRAMYCIN/DEXAMETHASONE OPH OINT PER APPLN CHARGE ONE; -VITATAB11 PO; -[UNRECOGNIZED DRUG - OTHER] PO
[2017-02-05] MEDS: PHENYLEPHRINE HCL 2.5% OP SOLN PER DROP CHARGE OPR SCH ×3 (08:25→08:35)
[2017-02-05] MEDS: TROPICAMIDE 1% OP SOLN PER DROP CHARGE OPR SCH ×3 (08:26→08:36)
[2017-02-05] MEDS: CYCLOPENTOLATE HCL 1% OP SOLN PER DROP CHARGE OPR SCH ×3 (08:27→08:37)
[2017-02-05] MEDS: MOXIFLOXACIN OPH SOLN PER DROP CHARGE OPR SCH ×3 (08:28→08:38)
--- NOTE | 2017-02-05 09:21 | [facility] Post Operative Brief Note ---
Immediate Operative Summary Operative Date Feb 05, 2017. Pre-Operative Diagnosis Right Eye Cataract Post-Operative Diagnosis same Procedure(s) Performed Right Cataract Phacoemulsification With Intraocular Lens Implant Surgeon Dr Luna Supervisor Coremaker Surgeon(s) none Estimated Blood Loss 0ml Findings right cataract Specimens none Complication(s) None Disposition
--- NOTE | 2017-02-05 09:22 | [facility] Operative Report ---
Operative Report Date of Service Feb 05, 2017. Operative Report DATE OF OPERATION: 02/05/17 PREOPERATIVE DIAGNOSIS: Senile nuclear cataract, right eye POSTOPERATIVE DIAGNOSIS: Senile nuclear cataract, right eye PROCEDURE PERFORMED: Phacoemulsification with intraocular lens implantation, right eye SURGEON: Dr. Aquilino Luna ANESTHESIA: Topical with 1% intracameral lidocaine and monitored anesthesia care COMPLICATIONS: None DESCRIPTION OF PROCEDURE: After positively identifying the patient both verbally and by wristband in the preoperative area, the right eye was marked as the operative eye. The patient was then brought back to the operating room by the anesthesia and nursing staff where they were given a drop of Lidocaine and betadine into the operative eye. They were then sterilely prepped and draped in the standard fashion typical for ophthalmic surgery. Steri-strips were placed along the upper eyelids to keep the lashes back, and a lid speculum was placed into the operative eye. At this point, a documented time out was performed with members of the ophthalmology, nursing, and anesthesia staffs all agreeing upon the correct patient, correct location for surgery, correct procedure, and correct type and power of intraocular lens to be implanted. The microscope was then swung into position. First, a paracentesis wound was made using a sideport blade. Then, in sequence, 1% preservative-free lidocaine followed by Endocoat viscoelastic was injected into the anterior chamber. Next , the main incision was made with a keratome blade in triplanar fashion. A sharp cystotome was introduced into the eye and used to create a tear in the anterior capsule, which was directed into a continuous curvilinear capsulorrhexis using Utrata forceps. Hydrodissection was then performed with BSS on a flat-tip cannula. Next, the phacoemulsification handpiece was introduced into the eye and used to remove the nucleus in a [id number] fashion. This was done without complication and then the irrigation-aspiration handpiece was introduced into the eye and used to remove all remaining cortical and epinuclear material. Amvisc was then injected into the anterior chamber as well as into the capsular bag and using the lens injector system, an MX60 22.5 D lens, serial number [id number], and expiration date 11/2019 was injected into the capsular bag and rotated into the correct position. Next, the irrigation- aspiration handpiece was used to remove all remaining Amvisc. BSS was used to hydrate the main wound, and then BSS was injected into the paracentesis site to reach physiologic pressure and then the main wound was checked and found to be watertight. The patient was given drops of Vigamox and Tobradex ointment into the operative eye, and then the surrounding area was cleaned and dried. A clear plastic shield was placed over the eye and the patient was then sat up and taken from the operating room by the anesthesia staff having tolerated the procedure well and suffering no complications. DISPOSITION: The patient was returned to the recovery room in stable condition. I attest to the content of the Intraoperative Record and any orders documented therein. Any exceptions are noted below.
[2017-02-05 09:23] VITALS: TEMP 36
--- NOTE | 2017-02-05 09:23 | Discharge Instructions-SurgCtr ---
Discharge Instructions Date of Service Feb 05, 2017. Visit Reason for Visit: Right Cataract Discharge Discharge Diagnosis / Problem: right cataract Discharge Goals Goal(s): Decrease discomfort, Improve function Activity Recommendations Activity Limitations: as noted below Anesthesia . Post Anesthesia Instructions: If you have had General Anesthesia or IV Sedation: * Do not drive today. * Resume driving when surgeon permits. * Do not make important decisions or sign legal documents today. * Call surgeon for: 1. Temperature elevations greater than 101 degrees F. 2. Uncontrollable pain. 3. Excessive bleeding. 4. Persistent nausea and vomiting. 5. Medication intolerance (nausea, vomiting or rash). * For nausea and vomiting use only clear liquids such as: tea, soda, bouillon until nausea subsides, then gradually increase diet as tolerated. * If you have any concerns or questions, call your surgeon's office. If physician is unavailable and it is an emergency, call 911 or go to the nearest emergency room. . Instructions / Follow-Up Instructions / Follow-Up ACTIVITY RECOMMENDATIONS: * Light activities. * You may walk outside, read, watch television. * You may notice redness on the white part of the eye and some blurry vision - this is normal. MEDICATIONS: Resume previous medications unless instructed otherwise by your surgeon. Start all eye drops at 11:30 am today: * Eye drops (today): Prednisone - one drop in operative eye every 2 hours while awake Polytrim - one drop in operative eye every 2 hours while awake Ilevro - one drop in operative eye daily SPECIAL CARE INSTRUCTIONS: * Tape plastic shield over eye to sleep at night. Call your doctor at with any concerns or problems. FOLLOW UP VISIT: Follow-up with Dr Luna at [facility] as scheduled. Diet Recommendations Home Diet: no limitations Procedures Procedures Performed: Right Cataract Phacoemulsification With Intraocular Lens Implant Pending Studies Studies pending at discharge: no Medical Emergencies . Who to Call and When: Medical Emergencies: If at any time you feel your situation is an emergency, please call 911 immediately. . Non-Emergent Contact Non-Emergency issues call your: Surgeon . . "Provider Documentation" section prepared by Aquilino Luna. .
[2017-02-05 09:43] VITALS: BP 163/78; PULSE 59; O2SAT 97
--- NOTE | 2017-02-05 09:44 | Anesthesia Progress Nt - [facility] ---
Anesthesia Post Op Note Date & Time Feb 05, 2017 at 09:44 Vital Signs Pain Intensity: 0 Vital Signs Past 12 Hours Date Time Temp Pulse Resp B/P (MAP) Pulse Ox O2 Delivery O2 Flow Rate FiO2 02/05/17 09:23 36 60 20 161/67 (98) 99 Room Air 02/05/17 08:13 36.4 63 16 156/79 (104) 97 Room Air Notes Mental Status: alert / awake / arousable, participated in evaluation Pt Amnestic to Procedure: Yes Nausea / Vomiting: adequately controlled Pain: adequately controlled Airway Patency, RR, SpO2: stable & adequate BP & HR: stable & adequate Hydration State: stable & adequate Anesthetic Complications: no major complications apparent
== END | disposition home or self-care (01) ==
LOC: X.SURG 07:44
PROVIDERS: ATTEND Ophthalmology
DX: H25.11 Age-related nuclear cataract, right eye (principal); Z96.651 Presence of right artificial knee joint; Z98.890 Other specified postprocedural states; Z68.33 Body mass index [BMI] 33.0-33.9, adult

== ENCOUNTER → 2017-02-19 | Day surgery (SDC) | payer OTHER ==
[2017-02-17 07:42] VITALS: Ht 158.8 cm; Wt 85.0 kg
[~2017-02-19] VITALS: Ht 158.8 cm; Wt 85.0 kg
[~2017-02-19] MED LIST changes: -FENTANYL CITRATE INJ 50 MCG/1 ML 2 ML VIAL IV PRN; -FLUMAZENIL 0.1 MG/1 ML 10 ML VIAL IV PRN; -HYDROmorphone INJ 2 MG/ML SYR/VIAL IV PRN; -LABETALOL HCL IV 5 MG/ML 20ML IV PRN; +LACTATED RINGER'S 1000ML 1,000 ML IV SCH; -LACTATED RINGER'S 1000ML 500 ML IV SCH; +LEVO75TA5 PO; +LIDOCAINE 4% OP SOLN DROP CHARGE OPL SCH; -LIDOCAINE 4% OP SOLN DROP CHARGE OPR SCH; -MEPERIDINE HCL 25 MG/ML CARP IV PRN; -NALOXONE HCL 0.4 MG/1 ML VIAL/CARP IV PRN; +NEPA0.6D OPL; +OFLO0.3D4 OPL; -PHENYLEPHRINE 100MCG/ML 5ML SYR IV PRN; +PROPARACAINE 0.5% OP SOLN PER DROP CHARGE OPL SCH; -PROPARACAINE 0.5% OP SOLN PER DROP CHARGE OPR SCH; -SYN75 PO
[2017-02-19] MEDS: PHENYLEPHRINE HCL 2.5% OP SOLN PER DROP CHARGE OPL SCH ×3 (09:18→09:29)
[2017-02-19] MEDS: TROPICAMIDE 1% OP SOLN PER DROP CHARGE OPL SCH ×3 (09:19→09:30)
[2017-02-19] MEDS: CYCLOPENTOLATE HCL 1% OP SOLN PER DROP CHARGE OPL SCH ×3 (09:20→09:31)
[2017-02-19] MEDS: MOXIFLOXACIN OPH SOLN PER DROP CHARGE OPL SCH ×3 (09:21→09:32)
--- NOTE | 2017-02-19 10:20 | [facility] Post Operative Brief Note ---
Immediate Operative Summary Operative Date Feb 19, 2017. Pre-Operative Diagnosis Cataract Left Eye Post-Operative Diagnosis Same Procedure(s) Performed Left Cataract Phacoemulsification With Intraocular Lens Implant Surgeon Dr. Luna Quantitative Analyst Marketing Surgeon(s) None Estimated Blood Loss 0 Findings left cataract Specimens None Complication(s) None Disposition
--- NOTE | 2017-02-19 10:21 | [facility] Operative Report ---
Operative Report Date of Service Feb 19, 2017. Operative Report DATE OF OPERATION: 02/19/17 PREOPERATIVE DIAGNOSIS: Senile nuclear cataract and astigmatism, left eye POSTOPERATIVE DIAGNOSIS: Senile nuclear cataract and astigmatism, left eye PROCEDURE PERFORMED: Phacoemulsification with toric intraocular lens implantation, left eye SURGEON: Dr. Aquilino Luna ANESTHESIA: Topical with 1% intracameral lidocaine and monitored anesthesia care COMPLICATIONS: None DESCRIPTION OF PROCEDURE: After positively identifying the patient both verbally and by wristband in the preoperative area, the left eye was marked as the operative eye. Using a Robomarker, the 177 degree axis was marked after placing a drop of proparacaine. The patient was then brought back to the operating room by the anesthesia and nursing staff where they were given a drop of tetracaine and betadine into the operative eye. They were then sterilely prepped and draped in the standard fashion typical for ophthalmic surgery. Steri-strips were placed along the upper eyelids to keep the lashes back, and a lid speculum was placed into the operative eye. At this point, a documented time out was performed with members of the ophthalmology, nursing, and anesthesia staffs all agreeing upon the correct patient, correct location for surgery, correct procedure, and correct type and power of intraocular lens to be implanted. The microscope was then swung into position. Then, a paracentesis wound was made using a sideport blade. Then, in sequence, 1% preservative-free lidocaine followed by Endocoat viscoelastic was injected into the anterior chamber. Next , the main incision was made with a keratome blade in triplanar fashion. A sharp cystotome was introduced into the eye and used to create a tear in the anterior capsule, which was directed into a continuous curvilinear capsulorrhexis using Utrata forceps. Hydrodissection was then performed with BSS on a flat-tip cannula. Next, the phacoemulsification handpiece was introduced into the eye and used to remove the nucleus in a [id number]-[id number] fashion. This was done without complication and then the irrigation-aspiration handpiece was introduced into the eye and used to remove all remaining cortical and epinuclear material. Amvisc was then injected into the anterior chamber as well as into the capsular bag and using the lens injector system, a RTR698 23.0 D lens, serial number [id number], and expiration date 09/2020 was injected into the capsular bag and rotated into the correct position to correctly line up with the toric marking. Next, the irrigation-aspiration handpiece was used to remove all remaining Amvisc. BSS was used to hydrate the main wound, and then BSS was injected into the paracentesis site to reach physiologic pressure and then the main wound was checked and found to be watertight. The patient was given drops of Vigamox and tobradex ointment into the operative eye, and then the surrounding area was cleaned and dried. A clear plastic shield was placed over the eye and the patient was then sat up and taken from the operating room by the anesthesia staff having tolerated the procedure well and suffering no complications. DISPOSITION: The patient was returned to the recovery room in stable condition. I attest to the content of the Intraoperative Record and any orders documented therein. Any exceptions are noted below.
--- NOTE | 2017-02-19 10:22 | Discharge Instructions-SurgCtr ---
Discharge Instructions Date of Service Feb 19, 2017. Visit Reason for Visit: Left Cataract Discharge Discharge Diagnosis / Problem: left cataract Discharge Goals Goal(s): Decrease discomfort, Improve function Activity Recommendations Activity Limitations: as noted below Anesthesia . Post Anesthesia Instructions: If you have had General Anesthesia or IV Sedation: * Do not drive today. * Resume driving when surgeon permits. * Do not make important decisions or sign legal documents today. * Call surgeon for: 1. Temperature elevations greater than 101 degrees F. 2. Uncontrollable pain. 3. Excessive bleeding. 4. Persistent nausea and vomiting. 5. Medication intolerance (nausea, vomiting or rash). * For nausea and vomiting use only clear liquids such as: tea, soda, bouillon until nausea subsides, then gradually increase diet as tolerated. * If you have any concerns or questions, call your surgeon's office. If physician is unavailable and it is an emergency, call 911 or go to the nearest emergency room. . Instructions / Follow-Up Instructions / Follow-Up ACTIVITY RECOMMENDATIONS: * Light activities. * You may walk outside, read, watch television. * You may notice redness on the white part of the eye and some blurry vision - this is normal. MEDICATIONS: Resume previous medications unless instructed otherwise by your surgeon. Start all eye drops at 12:30 pm today: * Eye drops (today): Prednisone - one drop in operative eye every 2 hours while awake Ofloxacin - one drop in operative eye every 2 hours while awake Ilevro - one drop in operative eye daily SPECIAL CARE INSTRUCTIONS: * Tape plastic shield over eye to sleep at night. Call your doctor at with any concerns or problems. FOLLOW UP VISIT: Follow-up with Dr Luna at [place] office as scheduled. Diet Recommendations Home Diet: no limitations Procedures Procedures Performed: Left Cataract Phacoemulsification With Intraocular Lens Implant Pending Studies Studies pending at discharge: no Medical Emergencies . Who to Call and When: Medical Emergencies: If at any time you feel your situation is an emergency, please call 911 immediately. . Non-Emergent Contact Non-Emergency issues call your: Surgeon . . "Provider Documentation" section prepared by Aquilino Luna. .
[2017-02-19 10:30] VITALS: TEMP 36.5
--- NOTE | 2017-02-19 10:39 | Anesthesia Progress Nt - [facility] ---
Anesthesia Post Op Note Date & Time Feb 19, 2017 at 10:39 Vital Signs Pain Intensity: 0 Vital Signs Past 12 Hours Date Time Temp Pulse Resp B/P (MAP) Pulse Ox O2 Delivery O2 Flow Rate FiO2 02/19/17 10:30 36.5 58 16 156/83 (107) 98 Room Air 02/19/17 09:11 36.5 67 16 114/76 (89) 96 Room Air Notes Mental Status: alert / awake / arousable, participated in evaluation Pt Amnestic to Procedure: Yes Nausea / Vomiting: adequately controlled Pain: adequately controlled Airway Patency, RR, SpO2: stable & adequate BP & HR: stable & adequate Hydration State: stable & adequate Anesthetic Complications: no major complications apparent
[2017-02-19 10:44] VITALS: BP 161/85; PULSE 65; O2SAT 98
== END | disposition home or self-care (01) ==
LOC: X.SURG 08:56
PROVIDERS: ATTEND Ophthalmology
DX: H25.12 Age-related nuclear cataract, left eye (principal); H52.202 Unspecified astigmatism, left eye; I10 Essential (primary) hypertension; K21.9 Gastro-esophageal reflux disease without esophagitis; F32.9 Major depressive disorder, single episode, unspecified

== ENCOUNTER 2017-12-28 14:23 | Emergency (ER) | payer OTHER ==
[~2017-12-28] VITALS: Ht 157.5 cm; Wt 85.6 kg
[~2017-12-28 14:23] MED LIST changes: -500ML BSS 0.3ML EPI 1:1000PF IRRIG ONE; -ACETAMINOPHEN 325 MG TAB PO PRN; -AMVISC PLUS 0.8ML SYRINGE INT OCU ONE; -ATROPINE SULFATE 0.1 MG/ML 5ML SYR IV PRN; -BSS FLUSH ONE; -ENDOCOAT 0.85ML SYRINGE INT OCU ONE; -EpHEDrine SULFATE INJ 50 MG/ML AMP IV PRN; -EpINEphrine INJ 1MG/ML AMP 1 MG/ML AMP ONE; -LACTATED RINGER'S 1000ML 1,000 ML IV SCH; -LIDOCAINE 4% OP SOLN DROP CHARGE ONE; -LIDOCAINE 4% OP SOLN DROP CHARGE OPL SCH; -LIDOCAINE HCL 1% MPF 2 ML VIAL ONE; -MIDAZOLAM HCL 1 MG/ML 2ML VIAL ONE; -MIX: 4ML BSS 1ML EPI 1:1000 PF TOP ONE; -MOXIFLOXACIN OPH SOLN PER DROP CHARGE ONE; -ONDANSETRON INJ 2 MG/ML 2 ML VIAL IV PRN; -POVIDONE-IODINE OP SOLN 30 ML BTL ONE; -PROPARACAINE 0.5% OP SOLN PER DROP CHARGE OPL SCH; -TOBRAMYCIN/DEXAMETHASONE OPH OINT PER APPLN CHARGE ONE
[2017-12-28 14:25] VITALS: Ht 157.5 cm; Wt 85.6 kg
[2017-12-28] MEDS ORDERED: HYDROCODONE/ACETAMIN 5/325MG TAB PO STA (15:16)
[2017-12-28] MEDS ORDERED: BACITRACIN OINT 15 GM TUBE EXT STA (15:16)
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
[2017-12-28 17:27] VITALS: BP 185/78; PULSE 75; TEMP 36.7; O2SAT 98
== END 2017-12-28 17:27 | disposition home or self-care (01) ==
LOC: C.EDB 14:24 → C.EDD 17:27
DX: T22.012A Burn of unspecified degree of left forearm, initial encounter (principal); T22.011A Burn of unspecified degree of right forearm, initial encounter; X12.XXXA Contact with other hot fluids, initial encounter; Y93.89 Activity, other specified; Y99.8 Other external cause status; I10 Essential (primary) hypertension; M19.90 Unspecified osteoarthritis, unspecified site; E03.9 Hypothyroidism, unspecified; Z91.048 Other nonmedicinal substance allergy status; Z88.8 Allergy status to other drugs, medicaments and biological substances; T31.0 Burns involving less than 10% of body surface; Z79.899 Other long term (current) drug therapy

== ENCOUNTER 2018-06-25 07:16 | Inpatient (IN) ==
--- NOTE | 2018-06-17 15:41 | PAT Medication Instructions ---
Medication Instructions Date of Service June 17, 2018 Home Medications Tylenol Arthritis Pain acetaminophen [Tylenol Arthritis 650 mg PO Q12H PRN albuterol sulfate [Ventolin HFA] 2 puff INHALATION QID PRN calcium carbonate-vitamin D3 1 tab PO QAM docusate sodium [Stool Softener]50 mg PO QAM estradiol 1 dose VAGINAL 3XWK hydrocodone-acetaminophen 1 tab PO Q6H PRN levothyroxine 1 tab PO QAM lovastatin 40 mg PO PM metoprolol succinate 25 mg PO QAM multivitamin 1 tab PO QAM omega 1-hhp-ywl-fish oil [[place]-3] 1 tab PO QAM pantoprazole 40 mg PO QAM plant stanol isi [Cholest Off] 1 tab PO QDD polyethylene glycol 3350 [ClearLax] 1 dose PO QAM ranitidine HCl 150 mg PO BID ASK your surgeon for instructions estradiol 1 dose VAGINAL 3XWK STOP taking 2 weeks before surgery (or as soon as possible if surgery is within 2 weeks) omega 2-byt-lby-fish oil [[place]-3] 1 tab PO QAM DO NOT take the morning of surgery calcium carbonate-vitamin D3 1 tab PO QAM docusate sodium [Stool Softener]50 mg PO QAM multivitamin 1 tab PO QAM polyethylene glycol 3350 [ClearLax] 1 dose PO QAM ranitidine HCl 150 mg PO BID Take morning of surgery With a small sip of water, OTHERWISE NOTHING TO EAT OR DRINK AFTER MIDNIGHT: Tylenol Arthritis Pain acetaminophen [Tylenol Arthritis 650 mg PO Q12H PRN ( okay to take up to 4 hours prior to surgery if needed) albuterol sulfate [Ventolin HFA] 2 puff INHALATION QID PRN (use if needed; please bring with you to hospital day of surgery if possible) hydrocodone-acetaminophen 1 tab PO Q6H PRN (okay to take up to 4 hours prior to surgery if needed) levothyroxine 1 tab PO QAM metoprolol succinate 25 mg PO QAM pantoprazole 40 mg PO QAM ranitidine HCl 150 mg PO BID Take evening before surgery Tylenol Arthritis Pain acetaminophen [Tylenol Arthritis 650 mg PO Q12H PRN (if needed) albuterol sulfate [Ventolin HFA] 2 puff INHALATION QID PRN (if needed) hydrocodone-acetaminophen 1 tab PO Q6H PRN (if needed) lovastatin 40 mg PO PM plant stanol isi [Cholest Off] 1 tab PO QDD ranitidine HCl 150 mg PO BID Other Notes If you have any questions please call us at [phone] or [phone] or [phone] or [phone]
--- NOTE | 2018-06-18 08:42 | Anesthesiology Consultation ---
Date of Service June 18, 2018 Assessment & Plan (1) Encounter for pre-operative examination: Plan: - PCP= 06/19/18= "average risk for perioperative cardiac event and may undergo the proposed surgery under noninvasive cardiac monitoring." Incidental lung nodule on prior imaging- PCP monitoring. CXR 06/18/18 with "negative chest" no noted lung nodules. - Chlorhexadine rash reaction with prior use therefore chlorhexadine preop wipes not given to patient for upcoming surgery. Chart Review Chart Review: Acceptable Risk for Surgery and Patient seen in Pre Admission Testing Teaching & Discussion Pre-Anesthesia Teaching/Discussion Notes: Instructed NPO after midnight before surgery,except medications with 15 cc of water. Medication instructions provided according to the PAT guidelines. History Surgery Operation Date: 06/25/18 11:20 Proposed Procedures p Left Total Knee Arthroplasty - Anselmo Pate MD Height/Weight Height: 5 ft 2 in Weight: 80.4 kg Allergies Allergy/AdvReac Type Severity Reaction Status Date / Time adhesive AdvReac Severe SKIN Unverified 06/18/18 08:42 PEELING chlorhexidine AdvReac Intermediate RLE RASH Unverified 06/18/18 08:42 2/2 PREOP WIPES tramadol AdvReac Mild NAUSEA Verified 06/18/18 08:42 Medications Home Medications Medication Instructions Recorded Confirmed Last Taken Tylenol Arthritis Pain 06/17/18 Unknown acetaminophen [Tylenol Arthritis 650 mg PO Q12H PRN 06/17/18 06/17/18 Unknown Pain] albuterol sulfate [Ventolin HFA] 2 puff INHALATION QID PRN 06/17/18 06/17/18 Unknown calcium carbonate-vitamin D3 1 tab PO QAM 06/17/18 06/17/18 Unknown [Calcium 600 + D(3)] docusate sodium [Stool Softener] 50 mg PO QAM 06/17/18 06/17/18 Unknown estradiol 1 dose VAGINAL 3XWK 06/17/18 06/17/18 Unknown hydrocodone-acetaminophen 1 tab PO Q6H PRN 06/17/18 06/17/18 Unknown levothyroxine 1 tab PO QAM 06/17/18 06/17/18 Unknown lovastatin 40 mg PO PM 06/17/18 06/17/18 Unknown metoprolol succinate 25 mg PO QAM 06/17/18 06/17/18 Unknown [id number] 1 tab PO QAM 06/17/18 06/17/18 Unknown [Multivitamin 50 Plus] omega 8-kke-bax-fish oil [[place]-3] 1 tab PO QAM 06/17/18 06/17/18 Unknown pantoprazole 40 mg PO QAM 06/17/18 06/17/18 Unknown plant stanol isi [Cholest Off] 1 tab PO QDD 06/17/18 06/17/18 Unknown polyethylene glycol 3350 [ClearLax] 1 dose PO QAM 06/17/18 06/17/18 Unknown ranitidine HCl 150 mg PO BID 06/17/18 06/17/18 Unknown Past Medical History Medical History Gallstones Anxiety Dyslipidemia Hypertension Hypothyroidism DJD (degenerative joint disease) of knee (11/03/13) Acid reflux OCCASIONAL Chronic constipation History of hemochromatosis NO PHLEBOTOMY TREATMENTS NEEDED 5+ YEARS; PCP MONITORING History of skin cancer Lung nodule PCP MONITORING Obesity Past Family History Family History Other No pertinent family history Past Surgical History Surgical History History of lumbar fusion L2-L4 DECOMPRESSION/FUSION= 09/25/16= GRADE VIEW 1, MAC 3, ETT 7.0 AT [facility] History of total knee arthroplasty RIGHT Hx of bilateral cataract extraction Hx of bladder repair surgery X2; + RECTAL SURGERY Hx of hernia repair Hx of hysterectomy Hx of sinus surgery Hx of tooth extraction Past Anesthesia History No Hx of Anesthesia Complications and No Family Hx of Anesthesia Complications History of PONV No Motion Sickness Screening History of Motion Sickness: Yes Social History Smoking Status: Never smoker Do You Dip or Chew Tobacco: No Hx Alcohol Use: No Hx Substance Use: No Exercise / Class Metabolic Activity III < 4 Walking/Shop/Light housework (USES CANE PRN) Review of Systems Patient denies chest pain, shortness of breath, cough, wheezing, palpitations. Physical Exam Vital Signs VITALS BP 139/73 P 70 TEMP 97.9 SP02 95%RA RESP 18 PHYSICAL Mildly decreased cervical extension. Full TMJ range of motion. TMD 3 breaths Mallampati Score 3 Dentition: full dentures on uppper; partial on lower Lungs: clear throughout to auscultation Cardiac: regular rate and rhythm, no murmurs noted Spine: normal Carotid arteries: negative bruit Extremities: no edema Testing Electrocardiogram Date: 04/15/18 SB at 59bpm. Moderate voltage criteria for LVH, may be normal variant. Chest X-Ray Date: 06/18/18 Findings: + NAD Laboratory Results 06/18/18 09:01 06/18/18 09: Blood Type O Positive 06/18/18 09: Antibody Screen NEGATIVE 06/18/18 09: PT 10.4 Seconds (9.0-12.0) 06/18/18 09: INR 1.0 (0.9-1.1) 06/18/18 09: APTT 26.4 Seconds (21.0-31.0) 06/18/18 09: Hemoglobin A1c 5.8 % (4.5-5.6) H 06/18/18 09: Urine Color Dark Yellow 06/18/18 09: Urine Appearance Cloudy (Clear) H 06/18/18 09: Urine pH 6.0 (4.5-7.5) 06/18/18 09: Ur Specific Russell 1.030 (1.000-1.030) 06/18/18 09: Urine Protein Negative (Negative) 06/18/18 09: Urine Glucose (UA) Negative (Negative) 06/18/18 09: Urine Ketones Trace (Negative) H 06/18/18 09: Urine Nitrite Negative (Negative) 06/18/18 09: Ur Leukocyte Esterase Negative (Negative) 06/18/18 09: Urine WBC (Auto) 5-10 /hpf (0-5) H 06/18/18 09: Urine RBC (Auto) 10-30 /hpf (0-4) H 06/18/18 09: U Hyaline Cast (Auto) 1-5 /lpf (0-5) 06/18/18 09: U Epithel Cells (Auto) >30 /lpf (0-5) H 06/18/18 09: Urine Bacteria (Auto) Negative (Negative) 06/18/18 09:01 06/18/18 09: Urine Culture - Final Urine,Clean Catch Lactobacillus species No sensitivities to follow per 06/18/18 urine culture*
--- NOTE | 2018-06-18 09:50 | XRay Report ---
XR chest Pre-admission PA/Lat CLINICAL HISTORY: pat preoperative COMPARISON STUDY: 10/11/2013 FINDINGS: The bones soft tissues and hemidiaphragms are normal. The cardiomediastinal silhouette is n ormal. The lungs are clear. The pulmonary vasculature is normal. IMPRESSION: Negative chest. The above report was generated using voice recognition software. It may contain grammatical, syntax or spelling errors. Electronically signed by: Alex Villalobos M.D. 06/18/2018 9:49 AM
[2018-06-18 10:25] LABS: Basophils # (auto) 0.03 K/uL (0-0.2); Basophils % (auto) 0.4 %; Eosinophils # (auto) 0.15 K/uL (0-0.5); Hematocrit (blood only) 42.3 % (37-47); Hemoglobin 14.4 g/dL (12.0-16.0); Immature Granulocytes # (auto) 0.03 K/uL (0.00-0.02); Immature Granulocytes % (auto) 0.4 %; Lymphocytes # (auto) 2.53 K/uL (1.2-3.4); Lymphocytes % (auto) 33.2 %; Mean Corpuscular Volume 96.4 fL (80-100); Monocytes # (auto) 0.75 K/uL (0.11-0.59); Monocytes % (auto) 9.8 %; Neutrophils # (auto) 4.14 K/uL (1.4-6.5); Neutrophils % (auto) 54.2 %; Platelet Count 233 K/uL (130-400); RDW Coefficient of Variation 13.5 % (11.5-14.5); RDW Standard Deviation 47.4 fL (36.4-46.3); Red Blood Count 4.39 M/uL (4.2-5.4); White Blood Count 7.63 K/uL (4.8-10.8)
[2018-06-18 10:30] LABS: Albumin Level 3.5 gm/dl (3.4-5.0); BUN Creatinine Ratio 26.9 (10-20); Calcium 8.7 mg/dl (8.5-10.1); Creatinine Clr Calc Pharmacy 48.4 ml/min; Est GFR (African American) 69.1; Est GFR (Non-African American) 59.6; Potassium 3.8 mmol/L (3.5-5.1)
[2018-06-18 10:31] LABS: Estimated Average Glucose 120 mg/dl
[2018-06-18 10:32] LABS: Appearance Urine Cloudy (Clear); Bacteria Urine Automated Negative (Negative); Bilirubin Urine Negative (Negative); Color Urine Dark Yellow; Epithelial Cell Urine Auto >30 /lpf (0-5); Glucose Urine UA Negative (Negative); Ketones Urine Trace (Negative); Leukocyte Esterase Urine Negative (Negative); Nitrite Urine Negative (Negative); Protein Urine Negative (Negative); Urobilinogen Urine Negative (Negative)
[2018-06-18 10:44] LABS: Partial Thromboplastin Time 26.4 Seconds (21.0-31.0); Prothrombin Time 10.4 Seconds (9.0-12.0)
--- NOTE | 2018-06-24 10:02 | History and Physical Report ---
DATE OF ADMISSION: 06/25/2018 CHIEF COMPLAINT: Left knee pain. HISTORY OF PRESENT ILLNESS: The patient is an 78-year-old female seen and evaluated in our office for left knee pain and disability. She had moderate degenerative changes on her x-ray, but no significant relief with intraarticular corticosteroid injection. 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 Due to these changes, she is now scheduled for left total knee arthroplasty. PAST MEDICAL HISTORY: Hypertension, hypercholesterolemia, depression, osteoarthritis, acid reflux, skin cancer. PAST SURGICAL HISTORY: Back surgery, hernia repair, previous right total knee arthroplasty, hysterectomy, bladder surgery. MEDICATIONS: Gabapentin 300 mg 3 times daily, levothyroxine 75 mcg daily, Protonix 40 mg daily, Premarin 0.3 mg 21 days monthly and then followed by 7 days off, paroxetine 20 mg daily, metoprolol succinate ER 25 mg daily, lovastatin 40 mg daily, Caltrate plus D daily, multivitamin daily, Azelastine nasal spray 2 sprays each nostril twice daily, Tylenol Arthritis as needed. ALLERGIES: No known drug allergies. SOCIAL HISTORY AND REVIEW OF SYSTEMS: Noncontributory. PHYSICAL EXAMINATION: GENERAL: Well-nourished, well-developed elderly female who appears her stated age. HEENT: Normocephalic, atraumatic, extraocular movements intact, oropharynx pink and moist. NECK: Supple without adenopathy. LUNGS: Clear to auscultation bilaterally. HEART: Regular rate and rhythm. ABDOMEN: Soft, nontender, nondistended. EXTREMITIES: The upper extremities within normal limits. Left knee is in neutral alignment. Her range of motion is from 0-120 degrees. X-RAYS: X-rays and MRI are reviewed. The x-ray shows [id number] medial compartment degenerative changes as well as moderate patellofemoral changes. 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 ASSESSMENT: Left knee degenerative joint disease. PLAN: Risks versus benefits were discussed, consent was obtained. We will proceed with left total knee arthroplasty as indicated.
[~2018-06-25 07:16] MED LIST changes: -ACET1TAB84 PO; +ACETAMINOPHEN 500 MG TAB PO SCH; +BUPIVACAINE 0.5 % 5 MG/1 ML PF 10ML VIAL ONE; -CALC-354 PO; +CEFAZOLIN 2000MG 2,000 MG/15 ML SYR IV SCH; +CeleBREX 200 MG CAP PO SCH; -DOCU-94 PO; +FAMOTIDINE 20 MG TAB PO SCH; -GABA-112 PO; +GABAPENTIN 300 MG PO SCH; -HYDR-5688 PO; -LEVO75TA5 PO; -LOVA40TA4 PO; +LR 500ML BOLUS, THEN 15ML/HR IV SCH; -METO25TA3 PO; +METOCLOPRAMIDE HCL 10 MG TABLET PO SCH; -MULT-506 PO; -NEPA0.6D OPL; -OFLO0.3D4 OPL; -OMEG12006 PO; -PANT40TA PO; +ROPIVACAINE 0.5% 5 MG/ML 30 ML VIAL ONE; +ROPIVACAINE 0.5% HCL/PF 150 MG, BUPIVACAINE 0.5% MPF 30 ML, EPINEPHrine 30MG/30ML (OR U... INFIL SCH; +TRANEXAMIC ACID 1,000 MG **IV Intra-op IV SCH; +TRANEXAMIC ACID 1,000 MG **IV Pre-op IV SCH; +dexAMETHasone 4 MG TAB PO SCH
--- NOTE | 2018-06-25 09:00 | History & Physical Bridge Note ---
Date of Service June 25, 2018 History & Physical Bridge Note I have examined the patient, reviewed the History & Physical and in the interval since the performance of the History & Physical I have noted the following changes of clinical significance: no changes noted
[2018-06-25] MEDS ORDERED: POVIDONE-IODINE OP SOLN 30 ML BTL ONE (09:28)
[2018-06-25] MEDS ORDERED: BACITRACIN INJ 50,000 UNIT VIAL ONE (09:28)
[2018-06-25] MEDS ORDERED: ORTHO JOINT ANESTHETIC ONE (09:28)
[2018-06-25] MEDS ORDERED: ePHEDrine sulfate 50 MG/ML AMP IV PRN (09:33)
[2018-06-25] MEDS ORDERED: ONDANSETRON INJ 2 MG/ML 2 ML VIAL IV PRN (09:33)
[2018-06-25] MEDS ORDERED: PHENYLEPHRINE 100MCG/ML 5ML SYR IV PRN (09:33)
[2018-06-25] MEDS ORDERED: KETOROLAC 30 MG/ML VIAL IV PRN (09:33)
[2018-06-25] MEDS ORDERED: HYDROmorphone INJ 1 MG/ML SYRINGE IV PRN (09:33)
[2018-06-25] MEDS ORDERED: ATROPINE SULFATE 0.1 MG/ML 10ML SYR IV PRN (09:33)
[2018-06-25] MEDS ORDERED: MIDAZOLAM HCL 1 MG/ML 2ML VIAL ONE ×2 (09:41)
[2018-06-25] MEDS ORDERED: fentaNYL citrate 100 MCG/2 ML VIAL ONE ×2 (10:17→11:29)
--- NOTE | 2018-06-25 11:09 | Operative Report ---
Post Operative Report Pre & Post Diagnosis Operation Date: 06/25/18 10:05 Pre-Op Diagnosis: Left knee osteoarthritis Post-Op Diagnosis: Left knee osteoarthritis Procedure Operation Date: 06/25/18 10:05 Actual Procedures p Left Total Knee Arthroplasty(Left) - Anselmo Pate MD Surgeon Anselmo Pate MD Guide Travel Wilian Estimated Blood Loss 20 Findings Consistent with Post-Op Diagnosis Specimens Bone fragments Anesthesia Type General Complications none Disposition Accompanied Patient To Recovery: No Disposition: Recovery Room Indications Knee pain Description of Procedure Patient's left leg was prepped and draped in usual sterile manner. Longitudinal skin incision made anterior subcutaneous tissue sharply dissected electrocautery for hemostasis. Medium parapatellar incision was made the patella was everted and the portion of fat pad was removed and the medial face the tibia was cleared of soft tissue using a Bovie and a Valdez blunt Hohmann. Proximal tibial osteotomy was carried out using acid extra medullary alignment guide and this bone fragment was removed. Next a drill was used to gain access to the femoral canal and the flexible guide drew was used was utilized to place the femoral cut. Cut was made and then a size 4 guide was used for making the chamfer cuts. The notch was prepared meniscal fragments were removed and the trial 4 femur was impacted in position. Tibia was presented into the wound using a blunt and sharp Hohmann. Size 2 tibial component was chosen and the baseplate was pinned in position. Stem preparations were made using the drill punch and mallet and a trial reduction was carried out a size 13 poly-gave good reproduction for extension and soft tissue tension. Next 39 reaming blade was used to prepare the patella and a 31 patella was chosen size to be used. Drill holes for the femoral pegs were placed as well as the drill holes for the patella trial components were removed periarticular injection was utilized and the knee was thoroughly irrigated with pulsatile irrigation. Bone ends were dried cement was mixed and the final components were cemented into position. All excess amount was removed and is held in extension while cement hardened Hemovac drain was placed Betadine soap was utilized and the final irrigation was carried out. The excess cement was closed using #1 Vicryl subcutaneous tissue was closed using 0 Dexon skin was closed with nunu due to the patient' s adhesive allergy. A dressing of Adaptic 4 x 4's sterile umbilicus applied. Debridement was utilized for all portions of the case including prepping draping surgical assistance wound closure and dressing application. I attest to the content of the Intraoperative Record and any orders documented therein. Any exceptions are noted below.
[2018-06-25] MEDS ORDERED: ONDANSETRON INJ 2 MG/ML 2 ML VIAL ONE ×2 (11:30→11:37)
[2018-06-25] MEDS ORDERED: LIDOCAINE HCL 2% 2 ML VIAL/AMP(20MG/ML) INFIL ONE (11:30)
[2018-06-25] MEDS ORDERED: PROPOFOL IV EMULSION 10 MG/ML 20 ML VIAL IV ONE (11:30)
--- NOTE | 2018-06-25 12:29 | XRay Report ---
LEFT KNEE 2 VIEWS History: Left total knee arthroplasty. Degenerative arthritis. Postop. FINDINGS: The patient is status post a left total knee arthroplasty. The hardware is intact. No fract ure or dislocation. Skin nunu and surgical drains are in place. IMPRESSION: Left total knee arthroplasty. No evidence for hardware complication. Electronically signed by: Cl Garcia M.D. 06/25/2018 12:27 PM
[2018-06-25] MEDS ORDERED: SODIUM CHLORIDE 0.9% 1000ML 1,000 ML IV SCH (13:33)
[2018-06-25] MEDS ORDERED: HYDROmorphone INJ 0.5 MG/0.5 ML SYR IV PRN (13:33)
[2018-06-25] MEDS ORDERED: METOCLOPRAMIDE HCL INJ 5 MG/ML 2 ML VIAL IV PRN (13:33)
[2018-06-25] MEDS ORDERED: NALOXONE HCL 0.4 MG/1 ML VIAL/CARP IV PRN (13:33)
[2018-06-25] MEDS ORDERED: ALBUTEROL HFA 8 GM INHALER INH PRN (13:33)
[2018-06-25] MEDS ORDERED: BISACODYL 10 MG SUPP PR PRN (13:33)
[2018-06-25] MEDS ORDERED: MAGNESIUM HYDROXIDE SUSP 30 ML UDC PO PRN (13:33)
--- NOTE | 2018-06-25 13:55 | Anesthesiology Progress Note ---
Date of Service June 25, 2018 Anesthesia Post Procedure Vital Signs Vital Signs: Temp Pulse Pulse Resp BP Pulse Ox 06/25/18 13:33 36.7 C 72 16 126/67 95 06/25/18 13:00 67 17 124/64 94 06/25/18 12:45 36.8 C 66 17 137/69 94 06/25/18 12:35 68 16 136/69 95 06/25/18 12:25 65 19 135/66 95 06/25/18 12:15 65 17 138/70 94 06/25/18 12:05 65 14 140/71 95 06/25/18 11:55 66 14 139/71 97 06/25/18 11:45 66 15 146/69 H 97 06/25/18 11:37 36.0 C L 68 15 159/74 H 97 06/25/18 08:14 36.9 C 79 20 154/73 H 99 Pain Intensity Left Knee: Pain Intensity: 0 Notes Mental Status: alert / awake / arousable Patient Amnestic to Procedure: Yes Nausea / Vomiting: adequately controlled Pain: adequately controlled Airway Patency, RR, SpO2: stable & adequate BP & HR: stable & adequate Hydration State: stable & adequate Neuraxial Anesthesia: was administered and sensory block is resolving Anesthetic Complications: no major complications apparent
[2018-06-25] MEDS: ACETAMINOPHEN 500 MG TAB PO SCH ×2 (14:12→21:35)
[2018-06-25] MEDS: OXYCODONE HCL IR 5 MG TAB (IMMEDIATE RELEASE) PO PRN ×2 (15:07→22:26)
[2018-06-25] MEDS: FERROUS GLUCONATE 324 MG TAB PO SCH (16:25)
[2018-06-25] MEDS: CEFAZOLIN 2000MG 2,000 MG/15 ML SYR IV SCH (18:17)
[2018-06-25] MEDS: ASPIRIN 81 MG ECTAB PO SCH (20:19)
[2018-06-25] MEDS: SENNA 8.6 MG TAB PO SCH (20:20)
[2018-06-25] MEDS: LOVASTATIN 20 MG TAB PO SCH (20:20)
[2018-06-25] MEDS: DOCUSATE SODIUM 100 MG CAP PO SCH (20:20)
[2018-06-26] MEDS: CEFAZOLIN 2000MG 2,000 MG/15 ML SYR IV SCH (02:37)
[2018-06-26] MEDS: OXYCODONE HCL IR 5 MG TAB (IMMEDIATE RELEASE) PO PRN ×4 (02:37→22:05)
[2018-06-26] MEDS ORDERED: Nursing to Pharmacy Communication ONE (04:16)
[2018-06-26] MEDS: LEVOTHYROXINE SODIUM 75 MCG TABLET PO SCH (05:39)
[2018-06-26 06:03] LABS: Hematocrit (blood only) 35.6 % (37-47); Hemoglobin 11.9 g/dL (12.0-16.0); Mean Corpuscular Hgb Conc 33.4 g/dL (32-36); Mean Corpuscular Volume 95.7 fL (80-100); Mean Platelet Volume 10.4 fL (7.4-10.4); Platelet Count 185 K/uL (130-400); RDW Coefficient of Variation 13.3 % (11.5-14.5); RDW Standard Deviation 46.6 fL (36.4-46.3); Red Blood Count 3.72 M/uL (4.2-5.4); White Blood Count 16.57 K/uL (4.8-10.8)
[2018-06-26 06:43] LABS: BUN Creatinine Ratio 19.5 (10-20); Calcium 8.1 mg/dl (8.5-10.1); Creatinine Clr Calc Pharmacy 34.6 ml/min; Est GFR (African American) 46.2; Est GFR (Non-African American) 39.8
--- NOTE | 2018-06-26 07:30 | Orthopedic Progress Note ---
Date of Service June 26, 2018 Assessment & Plan (1) Status post left knee replacement: 78 yo female stable POD #1 s/p left TKA 1. Med management 2. DVT prophylaxis- ASA, SCDs 3. PT/OT 4. D/C planning- rehab vs SNF Subjective Pt resting comfortably in bed, pain controlled, denies complaints Physical Exam 2 Vital Signs (Past 24 Hours): Last Vital Signs Temp 36.6 C 06/26/18 07:05 Pulse 58 L 06/26/18 07:05 Resp 16 06/26/18 07:05 BP 134/73 06/26/18 07:05 Pulse Ox 96 06/26/18 07:05 Physical Exam: Toes mobile, N/V/I, dressing and drain in place Results & Data Laboratory Results 06/26/18 06/26/18 Range/Units 05:38 05:38 WBC 16.57 H (4.8-10.8) K/uL RBC 3.72 L (4.2-5.4) M/uL Hgb 11.9 L (12.0-16.0) g/dL Hct 35.6 L (37-47) % MCV 95.7 (80-100) fL MCH 32.0 (25-34) pg MCHC 33.4 (32-36) g/dL RDW Std Deviation 46.6 H (36.4-46.3) fL RDW Coeff of Robbin 13.3 (11.5-14.5) % Plt Count 185 (130-400) K/uL MPV 10.4 (7.4-10.4) fL Sodium 139 (136-145) mmol/L Potassium 4.0 (3.5-5.1) mmol/L Chloride 108 H (98-107) mmol/L Carbon Dioxide 26 (21-32) mmol/L Anion Gap 5.0 (3-11) BUN 25 H (7-18) mg/dl Creatinine 1.27 H (0.6-1.2) mg/dl Est Cr Clr Drug Dosing 34.6 ml/min Est GFR ( Amer) 46.2 Est GFR (Non-Af Amer) 39.8 BUN/Creatinine Ratio 19.5 (10-20) Glucose 128 H (70-99) mg/dl Calcium 8.1 L (8.5-10.1) mg/dl
--- NOTE | 2018-06-26 08:40 | Anesthesiology Progress Note ---
Date of Service June 26, 2018 Anesthesia Post Procedure Vital Signs Vital Signs: Temp Pulse Pulse Resp BP Pulse Ox 06/26/18 07:05 36.6 C 58 L 16 134/73 96 06/26/18 03:25 36.5 C 54 L 16 127/68 97 06/25/18 22:55 36.6 C 58 L 16 118/64 93 06/25/18 19:35 36.5 C 66 18 116/67 94 06/25/18 16:38 36.4 C L 62 16 125/67 94 06/25/18 15:36 36.5 C 60 16 111/68 97 06/25/18 14:38 65 18 125/70 98 06/25/18 14:10 69 18 125/72 98 06/25/18 13:33 36.7 C 72 16 126/67 95 06/25/18 13:00 67 17 124/64 94 06/25/18 12:45 36.8 C 66 17 137/69 94 06/25/18 12:35 68 16 136/69 95 06/25/18 12:25 65 19 135/66 95 06/25/18 12:15 65 17 138/70 94 06/25/18 12:05 65 14 140/71 95 06/25/18 11:55 66 14 139/71 97 06/25/18 11:45 66 15 146/69 H 97 06/25/18 11:37 36.0 C L 68 15 159/74 H 97 Pain Intensity Left Knee: Pain Intensity: 0 Notes Mental Status: alert / awake / arousable and participated in evaluation Patient Amnestic to Procedure: Yes Nausea / Vomiting: adequately controlled Pain: adequately controlled Airway Patency, RR, SpO2: stable & adequate BP & HR: stable & adequate Hydration State: stable & adequate Anesthetic Complications: no major complications apparent and Pt Satisfied with anesthetic care
[2018-06-26] MEDS: METOPROLOL SUCC 25MG EXT REL TAB PO SCH (09:15)
[2018-06-26] MEDS: ACETAMINOPHEN 500 MG TAB PO SCH ×2 (09:15→16:53)
[2018-06-26] MEDS: ASPIRIN 81 MG ECTAB PO SCH ×2 (09:15→21:53)
[2018-06-26] MEDS: FERROUS GLUCONATE 324 MG TAB PO SCH ×2 (09:20→16:53)
[2018-06-26] MEDS: ONDANSETRON INJ 2 MG/ML 2 ML VIAL IV PRN ×2 (09:20→16:45)
[2018-06-26] MEDS: PANTOprazole 40 MG TAB PO SCH (12:38)
[2018-06-26] MEDS: MULTIVITAMIN TAB PO SCH (12:38)
[2018-06-26] MEDS: DOCUSATE SODIUM 100 MG CAP PO SCH ×2 (12:39→21:53)
[2018-06-26] MEDS: CALCIUM 600MG + VIT D 400 IU TAB PO SCH (12:39)
[2018-06-26] MEDS: SENNA 8.6 MG TAB PO SCH (21:53)
[2018-06-26] MEDS: LOVASTATIN 20 MG TAB PO SCH (21:53)
[2018-06-27] MEDS: ACETAMINOPHEN 500 MG TAB PO SCH ×2 (01:31→08:48)
[2018-06-27] MEDS: OXYCODONE HCL IR 5 MG TAB (IMMEDIATE RELEASE) PO PRN ×2 (03:22→08:49)
[2018-06-27] MEDS: LEVOTHYROXINE SODIUM 75 MCG TABLET PO SCH (05:54)
--- NOTE | 2018-06-27 07:16 | Orthopedic Progress Note ---
Date of Service June 27, 2018 Assessment & Plan (1) Status post left knee replacement: 78 yo female stable POD #1 s/p left TKA 1. Med management 2. DVT prophylaxis- ASA, SCDs 3. PT/OT 4. D/C planning- rehab vs SNF 5. Plan to recheck labs this morning. Possibly add Toradol for pain control. Plan for transfer to [facility] rehab if pain controlled and labs within normal limits. Subjective Postop day 2 status post left total knee arthroplasty. Patient is lying in bed. She is awake and alert and oriented. She complains of left knee pain this morning. Breath, chest pain, lightheadedness. She denies nausea or vomiting. Previously but that seems to have resolved. She has no other complaints at this time. Physical Exam 2 Vital Signs (Past 24 Hours): Last Vital Signs Temp 36.4 C L 06/27/18 07:08 Pulse 67 06/27/18 07:08 Resp 18 06/27/18 07:08 BP 175/76 H 06/27/18 07:08 Pulse Ox 97 06/27/18 07:08 Physical Exam: Incision is clean, dry, and intact. She does have some mild swelling of the knee which appears normal for the surgery she has had. Calves are soft nontender. Neurovascular is intact. Toes are mobile.
[2018-06-27 08:03] LABS: Calcium 8.1 mg/dl (8.5-10.1); Creatinine Clr Calc Pharmacy 43.5 ml/min; Est GFR (African American) 60.9; Est GFR (Non-African American) 52.5
[2018-06-27] MEDS ORDERED: KETOROLAC TROMETHAMINE 15 MG/ML VIAL IV ONE (08:45)
[2018-06-27] MEDS: FERROUS GLUCONATE 324 MG TAB PO SCH (08:46)
[2018-06-27] MEDS: PANTOprazole 40 MG TAB PO SCH (08:47)
[2018-06-27] MEDS: ASPIRIN 81 MG ECTAB PO SCH (08:47)
[2018-06-27] MEDS: CALCIUM 600MG + VIT D 400 IU TAB PO SCH (08:47)
[2018-06-27] MEDS: DOCUSATE SODIUM 100 MG CAP PO SCH (08:47)
[2018-06-27] MEDS: MULTIVITAMIN TAB PO SCH (08:47)
[2018-06-27] MEDS: METOPROLOL SUCC 25MG EXT REL TAB PO SCH (08:48)
--- NOTE | 2018-07-03 01:01 | Discharge Summary ---
DISCHARGE DIAGNOSIS: Degenerative joint disease, left knee. SECONDARY DIAGNOSES: Hypertension, hypercholesterolemia, depression, osteoarthritis, gastroesophageal reflux disease, skin carcinoma. CONSULTS: None. COMPLICATIONS: None. PROCEDURES: Left total knee arthroplasty performed by Dr. Pate on 06/25/2018. BRIEF HISTORY: As dictated in history and physical. HOSPITAL SUMMARY: The patient was admitted on the above-noted date and had the above-noted surgery performed, which she tolerated well. On the first postoperative day, patient was resting comfortably. Pain was controlled and she denied complaints. Vital signs were stable. She is afebrile. Toes were mobile. Neurovascular intact. Dressings and drain were in place. Hemoglobin was 11.9 and she was started on physical therapy protocol, continued on DVT prophylaxis and pain management. By her second postoperative day, she was lying in bed and was awake and alert, complaining of left knee pain that morning. She denied chest pain or lightheadedness or shortness of breath, denied nausea or vomiting. She had no other complaints. Vital signs were stable. She is afebrile. Incision clean, dry and intact. She did have some mild swelling of the knee which appeared normal for the surgery. Calves are soft, nontender. Neurovascularly intact. Toes mobile. Plans were to recheck her labs at morning and possibly add Toradol for pain control. Plans were for transfer to [facility] if pain is controlled, and labs are within normal limits. Repeat chemistries on 06/27/2018 showed a sodium of 143, potassium of 4, chloride 109, BUN of 23, creatinine of 1.0. One time dose of Toradol had been given to the patient and she was otherwise remaining stable. SBP was somewhat elevated in the morning but had dropped down to 150. She was otherwise remaining stable and it was felt she could be transferred to [facility] for further physical therapy and care. For further review, please see chart. LABORATORY AND X-RAY DATA: As per chart. DISCHARGE INSTRUCTIONS: The patient was discharged to [facility] on 06/27/2018. DIET: Regular. ACTIVITY: Weightbearing as tolerated left lower extremity with walker or crutches. Follow TK instruction sheets and special care instructions as noted. Follow up with Dr. Pate in 2 weeks. The patient to call for appointment if one has made for you. DISCHARGE MEDICATIONS: Acetaminophen 1000 mg p.o. q. 8 hours, aspirin 81 mg p.o. b.i.d., cefadroxil 500 mg p.o. b.i.d., Colace 100 mg p.o. b.i.d. and sennosides 17.2 mg p.o. at bedtime. Resume home meds as listed. Stop taking previous Tylenol dosage. Stop taking Colace, hydrocodone and [place]-3.
== END 2018-06-27 12:18 | DRG 470 ==
LOC: ASU 07:16 → 3E 13:28